=== PATIENT | female | born 1945 | race American Indian/Alaskan Native ===

== ENCOUNTER 2017-12-14 21:43 | Emergency (ER) | payer MEDICARE, BC ==
[~2017-12-14] VITALS: Ht 539.5 cm; Wt 68.2 kg
[~2017-12-14 21:43] MED LIST: HYDR-565 PO
[2017-12-14 22:13] LABS: BASOPHILS # (AUTO) 0.1 X10'3 (0-0.2); BASOPHILS % (AUTO) 1.6 % (0-1); EOSINOPHILS # (AUTO) 0.1 X10'3 (0-0.9); EOSINOPHILS % (AUTO) 1.7 % (0-6); HEMATOCRIT 40.5 % (35.0-45.0); HEMOGLOBIN 13.6 g/dl (12.0-16.0); LYMPHOCYTES # (AUTO) 0.6 X10'3 (1.1-4.8); LYMPHOCYTES % (AUTO) 11.5 % (21-51); MEAN CORPUSCULAR HEMOGLOBIN 32.6 PG (27.0-31.0); MEAN CORPUSCULAR HGB CONC 33.7 % (33.0-36.5); MEAN CORPUSCULAR VOLUME 96.7 FL (78-98); MEAN PLATELET VOLUME 8.9 FL (7.4-10.4); MONOCYTES # (AUTO) 0.4 X10'3 (0-0.9); MONOCYTES % (AUTO) 8.7 % (2-12); NEUTROPHILS # (AUTO) 3.9 X10'3 (1.8-7.7); NEUTROPHILS % (AUTO) 76.5 % (42-75); PLATELET COUNT 203 X10'3 (140-440); RED BLOOD COUNT 4.18 X10'6 (4.20-5.60); RED CELL DISTRIBUTION WIDTH 13.1 % (11.5-14.5); WHITE BLOOD COUNT 5.1 X10'3 (4.5-11.0)
[2017-12-14 22:50] LABS: COLOR,URINE YELLOW (Yellow); GLUCOSE, URINE NEGATIVE (Neg); KETONES,URINE 15 mg/dl (Neg); LEUKOCYTE ESTERASE ,URINE TRACE (Neg); NITRITES, URINE NEGATIVE (Neg); OCCULT BLOOD,URINE NEGATIVE (Neg); PH,URINE 5.5 (4.8-8.0); PROTEIN,URINE 30 mg/dl (Neg)
[2017-12-14 22:53] LABS: ALANINE AMINOTRANSFERASE 57 U/L (12-78); ALBUMIN 3.8 G/DL (3.4-5.0); ALBUMIN/GLOBULIN RATIO 1.3 (1.1-1.5); ALKALINE PHOSPHATASE 64 IU/L (46-116); ANION GAP 9 (8-16); ASPARTATE AMINO TRANSFERASE 71 U/L (10-37); BILIRUBIN,TOTAL 0.6 MG/DL (0.1-1.0); BLOOD UREA NITROGEN 43 MG/DL (7-18); BUN/CREATININE RATIO 29.5 (6.6-38.0); CALCIUM 8.9 MG/DL (8.5-10.1); CHLORIDE 109 MMOL/L (99-107); CREATININE 1.46 MG/DL (0.40-0.90); GLUCOSE 154 MG/DL (70-104); POTASSIUM 3.9 MMOL/L (3.5-5.1); SODIUM 145 MMOL/L (135-145); TOTAL CARBON DIOXIDE 27.2 MMOL/L (24-32); TOTAL PROTEIN 6.8 G/DL (6.4-8.2); eGFR 35 ML/MIN
[2017-12-14 23:02] LABS: CLARITY,URINE SLIGHTLY CLOUDY (Clear); UA COLLECTION TYPE NON-SPECIFIED; URINE AMPHETAMINE SCREEN NEGATIVE (Neg); URINE BARBITUATE SCREEN NEGATIVE (Neg); URINE BENZODIAZEPINES SCREEN NEGATIVE (Neg); URINE CANNABINOID SCREEN NEGATIVE (Neg); URINE COCAINE SCREEN NEGATIVE (Neg); URINE METHADONE SCREEN NEGATIVE (Neg); URINE OPIATE SCREEN NEGATIVE (Neg); URINE PHENCYCLIDINE SCREEN NEGATIVE (Neg)
[2017-12-14 23:03] LABS: BACTERIA,URINE FEW /HPF (Neg); HYALINE CASTS 0-3 /LPF (NEGATIVE); MUCUS STRANDS FEW /LPF (Neg); RBC,URINE 0-2 /HPF (0-2); SQUAMOUS EPITHELIAL CELL,UR FEW /LPF (FEW)
[2017-12-14 23:03] LABS: ETHANOL < 0.010 GM/DL (0.0-0.010); MAGNESIUM 2.6 MG/DL (1.5-2.4)
[2017-12-15] MEDS ORDERED: haloperidol 1mg tablet PO PRN (03:55)
[2017-12-15] MEDS ORDERED: haloperidol lactate 5mg/ml inj IM PRN (04:30)
[2017-12-15] MEDS ORDERED: LEVO100T PO (08:06)
[2017-12-15] MEDS ORDERED: INSU100V12 SQ (08:06)
[2017-12-15] MEDS ORDERED: TELM80TA2 PO (08:07)
[2017-12-15] MEDS ORDERED: LISI40TA4 PO (08:08)
[2017-12-15] MEDS ORDERED: FLUO20CA39 PO (08:08)
[2017-12-15] MEDS ORDERED: FLUoxetine 20mg capsule PO SCH (08:41)
[2017-12-15 14:13] VITALS: BP 164/92
[2017-12-15] MEDS ORDERED: nitrofuran/nitrofuran macrocrysal 100 MG capsule PO ONE (15:15)
[2017-12-15] MEDS ORDERED: NITR100C6 PO (16:22)
[2017-12-15] MEDS ORDERED: levoTHYROXINE 100mcg tablet PO SCH (21:00)
[2017-12-16] MEDS ORDERED: lisinopril 20mg tablet PO SCH (08:00)
[2017-12-16] MEDS ORDERED: losartan 50mg tablet PO SCH (08:00)
== END 2017-12-15 16:40 | disposition home or self-care (01) ==
LOC: ER 21:43
DX: F29 Unspecified psychosis not due to a substance or known physiological condition (principal); R41.82 Altered mental status, unspecified; E10.22 Type 1 diabetes mellitus with diabetic chronic kidney disease; E10.65 Type 1 diabetes mellitus with hyperglycemia; N18.9 Chronic kidney disease, unspecified; F22 Delusional disorders; Z88.5 Allergy status to narcotic agent; Z79.899 Other long term (current) drug therapy
CPT/HCPCS: 36415; 70450; 71045; 80053; 80305; 80320; 81001; 82140; 82948; 83735; 84439; 84443; 84484; 85025; 87077; 87088; 87186; 93005; 99285

== ENCOUNTER 2017-12-26 18:05 | Emergency (ER) | payer MEDICARE, BC ==
[~2017-12-26] VITALS: Ht 571.8 cm; Wt 65.0 kg
[~2017-12-26 18:05] MED LIST changes: +FLUO20CA39 PO; -HYDR-565 PO; +INSU100V12 SQ; +LEVO100T PO; +LISI40TA4 PO; +NITR100C6 PO; +TELM80TA2 PO
[2017-12-26] MEDS ORDERED: LORA10TA7 PO (18:45)
[2017-12-26] MEDS ORDERED: CEPH500C5 PO (18:45)
[2017-12-26 18:58] LABS: CLARITY,URINE CLEAR (Clear); COLOR,URINE YELLOW (Yellow); GLUCOSE, URINE NEGATIVE (Neg); KETONES,URINE 15 mg/dl (Neg); LEUKOCYTE ESTERASE ,URINE TRACE (Neg); NITRITES, URINE NEGATIVE (Neg); OCCULT BLOOD,URINE NEGATIVE (Neg); PROTEIN,URINE NEGATIVE (Neg); UROBILINOGEN,URINE 0.2 E.U/dL (0.2-1.0)
[2017-12-26 18:59] LABS: UA COLLECTION TYPE CLN CATCH MIDSTREAM
[2017-12-26 19:01] LABS: BACTERIA,URINE NONE SEEN /HPF (Neg); RBC,URINE 0-2 /HPF (0-2); SQUAMOUS EPITHELIAL CELL,UR FEW /LPF (FEW)
[2017-12-26 20:42] LABS: BASOPHILS % (AUTO) 0.4 % (0-1); EOSINOPHILS # (AUTO) 0.2 X10'3 (0-0.9); EOSINOPHILS % (AUTO) 3.3 % (0-6); HEMATOCRIT 39.5 % (35.0-45.0); HEMOGLOBIN 13.7 g/dl (12.0-16.0); LYMPHOCYTES # (AUTO) 0.8 X10'3 (1.1-4.8); LYMPHOCYTES % (AUTO) 14.1 % (21-51); MEAN CORPUSCULAR HEMOGLOBIN 33.2 PG (27.0-31.0); MEAN CORPUSCULAR HGB CONC 34.7 % (33.0-36.5); MEAN CORPUSCULAR VOLUME 95.8 FL (78-98); MEAN PLATELET VOLUME 9.3 FL (7.4-10.4); MONOCYTES # (AUTO) 0.4 X10'3 (0-0.9); MONOCYTES % (AUTO) 7.5 % (2-12); NEUTROPHILS # (AUTO) 4.2 X10'3 (1.8-7.7); NEUTROPHILS % (AUTO) 74.7 % (42-75); PLATELET COUNT 204 X10'3 (140-440); RED BLOOD COUNT 4.12 X10'6 (4.20-5.60); RED CELL DISTRIBUTION WIDTH 13.7 % (11.5-14.5); WHITE BLOOD COUNT 5.6 X10'3 (4.5-11.0)
[2017-12-26 20:55] LABS: URINE AMPHETAMINE SCREEN NEGATIVE (Neg); URINE BARBITUATE SCREEN NEGATIVE (Neg); URINE BENZODIAZEPINES SCREEN NEGATIVE (Neg); URINE CANNABINOID SCREEN NEGATIVE (Neg); URINE COCAINE SCREEN NEGATIVE (Neg); URINE METHADONE SCREEN NEGATIVE (Neg); URINE OPIATE SCREEN NEGATIVE (Neg); URINE PHENCYCLIDINE SCREEN NEGATIVE (Neg)
[2017-12-26] MEDS ORDERED: levoTHYROXINE 100mcg tablet PO SCH (21:00)
[2017-12-26] MEDS ORDERED: insulin glargine (Lantus) pen - multi-dose SQ SCH (21:00)
[2017-12-26 21:07] LABS: ALANINE AMINOTRANSFERASE 58 U/L (12-78); ALBUMIN 3.5 G/DL (3.4-5.0); ALBUMIN/GLOBULIN RATIO 1.1 (1.1-1.5); ALKALINE PHOSPHATASE 75 IU/L (46-116); ANION GAP 9 (8-16); ASPARTATE AMINO TRANSFERASE 42 U/L (10-37); BILIRUBIN,TOTAL 0.6 MG/DL (0.1-1.0); BLOOD UREA NITROGEN 40 MG/DL (7-18); CALCIUM 8.8 MG/DL (8.5-10.1); CHLORIDE 102 MMOL/L (99-107); CREATININE 1.29 MG/DL (0.40-0.90); ETHANOL < 0.010 GM/DL (0.0-0.010); GLUCOSE 118 MG/DL (70-104); POTASSIUM 3.7 MMOL/L (3.5-5.1); SODIUM 141 MMOL/L (135-145); TOTAL CARBON DIOXIDE 30.2 MMOL/L (24-32); TOTAL PROTEIN 6.7 G/DL (6.4-8.2); eGFR 41 ML/MIN
[2017-12-27] MEDS ORDERED: LORazepam 1 MG tablet PO ONE (01:15)
[2017-12-27] MEDS ORDERED: loratadine 10mg tablet PO SCH (08:00)
[2017-12-27] MEDS ORDERED: cephalexin 500mg capsule PO SCH (08:00)
[2017-12-27] MEDS ORDERED: levoTHYROXINE 100mcg tablet PO SCH (08:00)
[2017-12-27] MEDS ORDERED: losartan 50mg tablet PO SCH (08:00)
[2017-12-27] MEDS ORDERED: lisinopril 20mg tablet PO SCH (08:00)
[2017-12-27] MEDS ORDERED: FLUoxetine 20mg capsule PO SCH (08:00)
[2017-12-27 17:46] VITALS: BP 185/110
[2017-12-27] MEDS ORDERED: lactobacillus rhamnosus 10,000 MMU CELLS/CAPSULE PO SCH (20:00)
== END 2017-12-27 19:05 | disposition home or self-care (01) ==
LOC: ER 18:06
DX: R60.0 Localized edema (principal); F99 Mental disorder, not otherwise specified; I10 Essential (primary) hypertension; E11.9 Type 2 diabetes mellitus without complications; F29 Unspecified psychosis not due to a substance or known physiological condition; Z98.890 Other specified postprocedural states; Z88.5 Allergy status to narcotic agent; Z79.899 Other long term (current) drug therapy; Z79.4 Long term (current) use of insulin; Z60.2 Problems related to living alone; W06.XXXA Fall from bed, initial encounter; Y93.89 Activity, other specified; Y92.092 Bedroom in other non-institutional residence as the place of occurrence of the external cause; Y99.9 Unspecified external cause status
CPT/HCPCS: 36415; 80053; 80305; 80320; 81001; 82948; 84443; 85025; 87088; 96372; 99284; J1815

== ENCOUNTER 2020-10-07 18:19 | Emergency (ER) | payer MEDICARE, BC ==
[~2020-10-07] VITALS: Ht 157.5 cm; Wt 87.3 kg
[~2020-10-07 18:19] MED LIST changes: +CEPH-585 PO; -FLUO20CA39 PO; +FLUO40CA10 PO; +FURO20TA4 PO; -LEVO100T PO; +LEVO125T PO; -LISI40TA4 PO; +LORA0.5T PO; +LORA10TA65 PO; +LOSA100T57 PO; -NITR100C6 PO; +PANT40TA54 PO; +QUET25TA34 PO; -TELM80TA2 PO
[2020-10-07 19:56] LABS: CLARITY,URINE CLEAR (Clear); COLOR,URINE YELLOW (Yellow); GLUCOSE, URINE >=1000 mg/dl (Neg); KETONES,URINE NEGATIVE (Neg); LEUKOCYTE ESTERASE ,URINE NEGATIVE (Neg); NITRITES, URINE NEGATIVE (Neg); OCCULT BLOOD,URINE NEGATIVE (Neg); PROTEIN,URINE TRACE mg/dl (Neg); UROBILINOGEN,URINE 0.2 E.U/dL (0.2-1.0)
[2020-10-07 20:09] LABS: BACTERIA,URINE NONE SEEN /HPF (Neg); RBC,URINE 0-2 /HPF (0-2); SQUAMOUS EPITHELIAL CELL,UR FEW /LPF (FEW); UA COLLECTION TYPE CLN CATCH MIDSTREAM; WBC,URINE NONE SEEN /HPF (0-4)
[2020-10-07 21:37] LABS: ALBUMIN 3.3 G/DL (3.4-5.0); ANION GAP 9 (8-16); BLOOD UREA NITROGEN 37 MG/DL (7-18); BUN/CREATININE RATIO 30.8 (6.6-38.0); CALCIUM 7.9 MG/DL (8.5-10.1); CHLORIDE 101 MMOL/L (99-107); GLUCOSE 151 MG/DL (70-104); POTASSIUM 3.5 MMOL/L (3.5-5.1); SODIUM 141 MMOL/L (135-145); TOTAL CARBON DIOXIDE 30.7 MMOL/L (24-32); eGFR 44 ML/MIN
[2020-10-07 21:56] VITALS: BP 156/77
== END 2020-10-07 21:59 | disposition home or self-care (01) ==
LOC: ER 18:20
DX: E11.65 Type 2 diabetes mellitus with hyperglycemia (principal); R10.30 Lower abdominal pain, unspecified; F32.9 Major depressive disorder, single episode, unspecified; E11.9 Type 2 diabetes mellitus without complications; I10 Essential (primary) hypertension; Z87.440 Personal history of urinary (tract) infections; Z79.2 Long term (current) use of antibiotics; Z79.899 Other long term (current) drug therapy; Z91.041 Radiographic dye allergy status; Z91.013 Allergy to seafood; Z91.018 Allergy to other foods; Z88.8 Allergy status to other drugs, medicaments and biological substances; Z79.4 Long term (current) use of insulin
CPT/HCPCS: 36415; 80048; 81001; 82948; 99283

== ENCOUNTER 2020-10-12 13:41 | Emergency (ER) | payer MEDICARE, BC ==
[~2020-10-12] VITALS: Ht 157.5 cm; Wt 86.4 kg
[2020-10-12 15:20] LABS: BASOPHILS # (AUTO) 0.1 X10'3 (0-0.2); EOSINOPHILS # (AUTO) 0.3 X10'3 (0-0.9); EOSINOPHILS % (AUTO) 4.8 % (0-6); HEMOGLOBIN 10.6 g/dl (12.0-16.0); LYMPHOCYTES # (AUTO) 0.9 X10'3 (1.1-4.8); LYMPHOCYTES % (AUTO) 15.1 % (21-51); MEAN CORPUSCULAR HEMOGLOBIN 33.5 PG (27.0-31.0); MEAN CORPUSCULAR HGB CONC 34.1 g/dL (33.0-36.5); MEAN CORPUSCULAR VOLUME 98.3 FL (78-98); MEAN PLATELET VOLUME 8.1 FL (7.4-10.4); MONOCYTES # (AUTO) 0.4 X10'3 (0-0.9); MONOCYTES % (AUTO) 6.9 % (2-12); NEUTROPHILS # (AUTO) 4.2 X10'3 (1.8-7.7); NEUTROPHILS % (AUTO) 72.2 % (42-75); PLATELET COUNT 265 X10'3 (140-440); RED BLOOD COUNT 3.15 X10'6 (4.20-5.60); RED CELL DISTRIBUTION WIDTH 13.5 % (11.5-14.5); WHITE BLOOD COUNT 5.9 X10'3 (4.5-11.0)
[2020-10-12 15:36] LABS: ALANINE AMINOTRANSFERASE 18 U/L (12-78); ALBUMIN 3.5 G/DL (3.4-5.0); ALKALINE PHOSPHATASE 136 IU/L (46-116); ANION GAP 7 (8-16); ASPARTATE AMINO TRANSFERASE 26 U/L (10-37); BILIRUBIN,TOTAL 0.3 MG/DL (0.1-1.0); BLOOD UREA NITROGEN 41 MG/DL (7-18); BUN/CREATININE RATIO 29.1 (6.6-38.0); CALCIUM 8.4 MG/DL (8.5-10.1); CHLORIDE 104 MMOL/L (99-107); CREATININE 1.41 MG/DL (0.40-0.90); GLUCOSE 101 MG/DL (70-104); POTASSIUM 4.1 MMOL/L (3.5-5.1); SODIUM 140 MMOL/L (135-145); TOTAL PROTEIN 7.1 G/DL (6.4-8.2); eGFR 36 ML/MIN
[2020-10-12 15:46] LABS: ETHANOL < 0.010 GM/DL (0.0-0.010)
[2020-10-12 15:55] LABS: CLARITY,URINE CLEAR (Clear); COLOR,URINE STRAW (Yellow); GLUCOSE, URINE NEGATIVE (Neg); KETONES,URINE NEGATIVE (Neg); LEUKOCYTE ESTERASE ,URINE NEGATIVE (Neg); NITRITES, URINE NEGATIVE (Neg); OCCULT BLOOD,URINE NEGATIVE (Neg); PH,URINE 5.5 (4.8-8.0); PROTEIN,URINE NEGATIVE (Neg); UROBILINOGEN,URINE 0.2 E.U/dL (0.2-1.0)
[2020-10-12 15:59] LABS: URINE AMPHETAMINE SCREEN NEGATIVE (Neg); URINE BARBITUATE SCREEN NEGATIVE (Neg); URINE BENZODIAZEPINES SCREEN NEGATIVE (Neg); URINE CANNABINOID SCREEN NEGATIVE (Neg); URINE COCAINE SCREEN NEGATIVE (Neg); URINE METHADONE SCREEN NEGATIVE (Neg); URINE OPIATE SCREEN NEGATIVE (Neg); URINE PHENCYCLIDINE SCREEN NEGATIVE (Neg)
[2020-10-12 16:03] LABS: UA COLLECTION TYPE CLN CATCH MIDSTREAM
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
[2020-10-12] MEDS ORDERED: normal saline 1000ML IV soln IVB ONE (16:10)
--- NOTE | 2020-10-12 16:10 | NUR ---
faxed [facility]
[2020-10-12] MEDS ORDERED: GABA-530 PO (18:04)
[2020-10-12] MEDS ORDERED: TRAM50TA2 PO (18:04)
[2020-10-12] MEDS ORDERED: CLON0.2T PO (18:04)
[2020-10-12] MEDS ORDERED: ACET-1015 PO (18:04)
[2020-10-12] MEDS ORDERED: FURO-150 PO (18:04)
[2020-10-12] MEDS ORDERED: DICL100G30 TOP (18:04)
[2020-10-12] MEDS ORDERED: GUAI200T5 (18:04)
[2020-10-12] MEDS ORDERED: INSU100V9 SQ (18:04)
[2020-10-12] MEDS ORDERED: POTA10TA36 PO (18:04)
[2020-10-12] MEDS ORDERED: MAGN100C5 PO (18:04)
[2020-10-12] MEDS ORDERED: LOSA100T57 PO (18:30)
[2020-10-12] MEDS ORDERED: LEVO125T8 PO (18:30)
[2020-10-12] MEDS ORDERED: LANTUS SQ (18:44)
[2020-10-12] MEDS ORDERED: acetaminophen 325mg tablet PO PRN (19:00)
[2020-10-12] MEDS ORDERED: traMADol 50MG tablet PO PRN (19:00)
[2020-10-12] MEDS ORDERED: insulin glargine (Lantus) pen - multi-dose SQ SCH (21:00)
[2020-10-12] MEDS: cloNIDine 0.1 mg tablet PO SCH (21:14)
[2020-10-12] MEDS: potassium chloride 10mEq ER tablet PO SCH (21:15)
[2020-10-12] MEDS: gabapentin 300mg capsule PO SCH (21:15)
[2020-10-12] MEDS: furosemide 20MG tablet PO SCH (21:15)
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
[2020-10-12] MEDS ORDERED: diphenhydrAMINE 50 mg/ml inj IM ONE (23:05)
[2020-10-12] MEDS ORDERED: haloperidol lactate 5mg/ml inj IM ONE (23:05)
--- NOTE | 2020-10-12 23:33 | NUR ---
Lantus administration given late due to combative behavior that req'd other medications. Glucose 152 at time of insulin administration.
--- NOTE | 2020-10-13 02:20 | NUR ---
pt walked to edge of room and yelled, "hey turn off the air conditioner" - pt was given warm blankets
--- NOTE | 2020-10-13 05:28 | NUR ---
pt resting comfortably. no needs at this time. will continue to monitor
[2020-10-13 05:39] VITALS: BP_DIAS 60
--- NOTE | 2020-10-13 07:35 | NUR ---
Pt lying still with eyes closed, respirations equal and nonlabored.
[2020-10-13] MEDS ORDERED: MAGNESIUM CITRATE PO SCH (08:00)
[2020-10-13] MEDS ORDERED: levoTHYROXINE 125mcg tablet PO SCH (08:00)
[2020-10-13] MEDS ORDERED: losartan 50mg tablet PO SCH (08:00)
[2020-10-13] MEDS: potassium chloride 10mEq ER tablet PO SCH (09:23)
[2020-10-13 09:24] VITALS: BP_SYST 142
[2020-10-13] MEDS: cloNIDine 0.1 mg tablet PO SCH (09:24)
[2020-10-13] MEDS: furosemide 20MG tablet PO SCH (09:24)
[2020-10-13] MEDS: gabapentin 300mg capsule PO SCH (09:24)
--- NOTE | 2020-10-13 10:18 | NUR ---
RELIEVING RN FOR BREAK, PT IS RESTING QUIETLY ON GURNEY, TALKING WITH STAFF
== END 2020-10-13 11:48 ==
LOC: ER 13:42
DX: F33.9 Major depressive disorder, recurrent, unspecified (principal); I10 Essential (primary) hypertension; E11.9 Type 2 diabetes mellitus without complications; Z88.5 Allergy status to narcotic agent; Z79.899 Other long term (current) drug therapy
CPT/HCPCS: 96360; 96372; 99285; J1200; J1630; J7030; 36415; 80053; 80305; 80320; 81003; 82948; 84443; 85025; J1815